=== PATIENT | male | born 1960 | race Caucasian/White ===

== ENCOUNTER 2016-12-10 14:44 | Emergency (ER) | payer MEDICAID, OTHER ==
[~2016-12-10] VITALS: Ht 175.3 cm; Wt 95.3 kg
[2016-12-10 14:52] VITALS: BP 144/99
--- NOTE | 2016-12-10 14:55 | NUR ---
PATIENT PRESENTS TO ED WITH C/O LOW BACK PAIN ON AND OFF, WORSE WHEN BREATHING DEEP AND COUGHING, BEEN GOING ON X 4 DAYS; DENIES N/V/D; SKIN IS PINK/WARM/DRY; AAOX4 WITH EVEN AND STEADY GAIT; LUNGS CLEAR BL; HR EVEN AND REGULAR; PT DENIES ANY FEVER, CP, SOB, OR COUGH AT THIS TIME; PATIENT STATES PAIN OF 8/10 AT THIS TIME; VSS; PATIENT POSITIONED FOR COMFORT; HOB ELEVATED; BEDRAILS UP X2; BED DOWN. ER MD MADE AWARE OF PT STATUS.
--- NOTE | 2016-12-10 15:04 | NUR ---
DR FLORES ASSESS [facility] PT AT BEDSIDE
[2016-12-10] MEDS ORDERED: KETOROLAC 60 MG/2 ML VIAL IM ONE (15:10)
--- NOTE | 2016-12-10 15:36 | NUR ---
[facility] PT TAKEN TO XRAY VIA WHEEL CHAIR BY [place]
[2016-12-10 16:45] VITALS: BP 121/81
--- NOTE | 2016-12-10 16:45 | NUR ---
Patient discharged with v/s stable. Written and verbal after care instructions given and explained. Patient alert, oriented and verbalized understanding of instructions. Ambulatory with steady gait. All questions addressed prior to discharge. ID band removed. Patient advised to follow up with PMD. Rx of MOTRIN, FLEXERIL, TRAMADOL given. Patient educated on indication of medication including possible reaction and side effects. Opportunity to ask questions provided and answered.
== END 2016-12-10 16:45 | disposition home or self-care (01) ==
LOC: MED 14:44
DX: M62.830 Muscle spasm of back (principal); R03.0 Elevated blood-pressure reading, without diagnosis of hypertension; M54.2 Cervicalgia
CPT/HCPCS: 72100; 96372; 99284; J1885

== ENCOUNTER 2017-07-15 09:25 | Emergency (ER) | payer OTHER ==
[~2017-07-15] VITALS: Ht 182.9 cm; Wt 93.6 kg
[2017-07-15 09:28] VITALS: BP 120/76
--- NOTE | 2017-07-15 09:33 | NUR ---
Patient ambulated to bed 3.
--- NOTE | 2017-07-15 09:36 | NUR ---
PATIENT PRESENTS TO ED WITH C/O LEFT INGUINAL HERNIA, PAIN---SEEN 07/02/2017 TAUGHT HOW TO PUSH IT BACK AND APPLY ICE---PT STATES IT HURTS MORE NOW AND REPEATEDLY PROTRUDING HX---INGUINAL HERNIA, RX---NONE . PT STATES; DENIES N/V/D; SKIN IS PINK/WARM/DRY; AAOX4 WITH EVEN AND STEADY GAIT; LUNGS CLEAR BL; HR EVEN AND REGULAR; PT DENIES ANY FEVER, CP, SOB, OR COUGH AT THIS TIME; PATIENT STATES PAIN OF 7/10 AT THIS TIME; VSS; PATIENT POSITIONED FOR COMFORT; HOB ELEVATED; BEDRAILS UP X2; BED DOWN. ER MD MADE AWARE OF PT STATUS.
--- NOTE | 2017-07-15 11:05 | NUR ---
ER MD DR. HIGUERA EVALUATING PT AT BEDSIDE.
--- NOTE | 2017-07-15 11:05 | NUR ---
DR HIGUERA EVALUATING [facility] PT WITH DAUGHTER AT BEDSIDE
[2017-07-15] MEDS ORDERED: KETOROLAC 60 MG/2 ML VIAL IM ONE (11:10)
[2017-07-15 11:30] VITALS: BP 107/85
--- NOTE | 2017-07-15 11:30 | NUR ---
Patient discharged with v/s stable. Written and verbal after care instructions given and explained. Patient alert, oriented and verbalized understanding of instructions. Ambulatory with steady gait. All questions addressed prior to discharge. ID band removed. Patient advised to follow up with PMD. Rx of NORCO, MOTRIN given. Patient educated on indication of medication including possible reaction and side effects. Opportunity to ask questions provided and answered.
== END 2017-07-15 11:30 | disposition home or self-care (01) ==
LOC: MED 09:25
DX: K40.90 Unilateral inguinal hernia, without obstruction or gangrene, not specified as recurrent (principal); F17.200 Nicotine dependence, unspecified, uncomplicated
CPT/HCPCS: 96372; 99283; J1885

== ENCOUNTER 2017-08-04 16:22 | Emergency (ER) | payer OTHER ==
[~2017-08-04] VITALS: Ht 182.9 cm; Wt 93.6 kg
[2017-08-04 16:28] VITALS: BP 132/80
--- NOTE | 2017-08-04 16:37 | NUR ---
Patient ambulated to bed 09.
--- NOTE | 2017-08-04 16:39 | NUR ---
PATIENT PRESENTS TO ED WITH C/O LEFT INGUINAL HERNIA X 1 WK;BURNING TYPE PAIN, DENIES INCONTINENCE;DENIES PAINFUL URINATION;ALSO C/O DRIBBLING IN URINATION;HX OF INGUINAL HERNIA, RX OF NORCO, IBUPROFEN .DENIES N/V/D; SKIN IS PINK/WARM/DRY; AAOX4 WITH EVEN AND STEADY GAIT; LUNGS CLEAR BL; HR EVEN AND REGULAR; PT DENIES ANY FEVER, CP, SOB, OR COUGH AT THIS TIME; PATIENT STATES PAIN OF 8/10 AT THIS TIME;PATIENT POSITIONED FOR COMFORT; HOB ELEVATED; BEDRAILS UP X2; BED DOWN. ER MD MADE AWARE OF PT STATUS.
--- NOTE | 2017-08-04 17:16 | NUR ---
DR HIGUERA AT BEDSIDE.
--- NOTE | 2017-08-04 17:16 | NUR ---
Dr. Mark evaluating patient at bedside.
[2017-08-04] MEDS ORDERED: MORPHINE SULFATE 4 MG/ML SYR IM ONE (17:25)
--- NOTE | 2017-08-04 17:48 | NUR ---
PT SATES PAIN IS GOING AWAY;PAIN SCALE OF 7/10;NO MOANING;FACIAL GRIMMACING NOTED;WILL CONTINUE TO MONITOR PT.
[2017-08-04 17:55] VITALS: BP 123/76
--- NOTE | 2017-08-04 17:55 | NUR ---
Patient discharged with v/s stable. Written and verbal after care instructions given and explained. Patient alert, oriented and verbalized understanding of instructions. Ambulatory with steady gait. All questions addressed prior to discharge. ID band removed. Patient advised to follow up with PMD. Rx of NORCO AND MOTRIN given. Patient educated on indication of medication including possible reaction and side effects. Opportunity to ask questions provided and answered.
== END 2017-08-04 17:55 | disposition home or self-care (01) ==
LOC: MED 16:22
DX: K40.90 Unilateral inguinal hernia, without obstruction or gangrene, not specified as recurrent (principal); F17.210 Nicotine dependence, cigarettes, uncomplicated; Z91.041 Radiographic dye allergy status
CPT/HCPCS: 96372; 99283; J2270

== ENCOUNTER 2017-09-06 07:39 | Day surgery (SDC) | payer OTHER ==
[~2017-09-06] VITALS: Ht 175.3 cm; Wt 90.7 kg
[2017-09-06] MEDS ORDERED: PROPOFOL 200 MG/20 ML VIAL IV ONE (08:41)
[2017-09-06] MEDS ORDERED: ONDANSETRON 4 MG/2 ML VIAL IVP ONE (08:41)
[2017-09-06] MEDS ORDERED: SEVOFLURANE 250 ML BTL INH ONE (08:41)
[2017-09-06] MEDS ORDERED: DEXAMETHASONE 4 MG/ML VIAL IVP ONE (08:41)
[2017-09-06] MEDS ORDERED: BUPIVACAINE-MPF 0.25% 30 ML VIAL INJ ONE (08:49)
[2017-09-06] MEDS ORDERED: fentaNYL 0.05 MG/ML VIAL ONE (08:55)
[2017-09-06] MEDS ORDERED: MORPHINE SULFATE 4 MG/ML SYR ONE ×3 (08:55→10:40)
[2017-09-06] MEDS ORDERED: MIDAZOLAM 2 MG/2 ML VIAL ONE (08:55)
[2017-09-06] MEDS ORDERED: MORPHINE SULFATE 4 MG/ML SYR IVP PRN (09:10)
[2017-09-06] MEDS ORDERED: MORPHINE SULFATE 2 MG/ML SYR IVP PRN ×2 (09:10→10:15)
[2017-09-06] MEDS ORDERED: METOCLOPRAMIDE 10 MG/2 ML INJ VIAL IVP PRN (09:10)
[2017-09-06] MEDS ORDERED: MIDAZOLAM 2 MG/2 ML VIAL IV ONE (09:10)
[2017-09-06] MEDS ORDERED: HYDROcodone/APAP 5/325 MG 1 TAB TAB PO PRN (10:15)
[2017-09-06] MEDS ORDERED: HYDROmorphone 1 MG/ML AMP IVP PRN (10:15)
[2017-09-06] MEDS ORDERED: ACETAMINOPHEN 325 MG TAB PO PRN (10:15)
[2017-09-06] MEDS ORDERED: MORPHINE SULFATE 4 MG/ML SYR IV PRN (10:15)
[2017-09-06] MEDS ORDERED: ONDANSETRON 4 MG/2 ML VIAL IV PRN (10:15)
[2017-09-06] MEDS: MORPHINE SULFATE 4 MG/ML SYR IVP PRN ×2 (10:18→10:34)
[2017-09-06] MEDS ORDERED: HYDROmorphone 1 MG/ML AMP IVP ONE (12:10)
== END 2017-09-06 12:40 | disposition home or self-care (01) ==
LOC: MDS 07:39 → MMU 07:39 → MDS 12:40
PROVIDERS: ATTEND Surgery
DX: K40.90 Unilateral inguinal hernia, without obstruction or gangrene, not specified as recurrent (principal); F17.210 Nicotine dependence, cigarettes, uncomplicated; Z98.890 Other specified postprocedural states; Z88.8 Allergy status to other drugs, medicaments and biological substances; Z79.899 Other long term (current) drug therapy
CPT/HCPCS: 49505; 71010; 93005; J0690; J0694; J1100; J1170; J2250; J2270; J2405; J2704; J3010; J3490; J7060; J7120

== ENCOUNTER 2021-05-04 10:12 | Emergency (ER) | payer OTHER ==
[~2021-05-04] VITALS: Ht 175.3 cm; Wt 104.3 kg
[2021-05-04 10:26] VITALS: BP 132/92
[2021-05-04] MEDS ORDERED: HYDROcodone/APAP 5/325 MG 1 TAB TAB PO ONE (10:30)
[2021-05-04] MEDS ORDERED: IBUPROFEN 400 MG TAB PO ONE (10:30)
--- NOTE | 2021-05-04 10:30 | NUR ---
Patient ambulated to bed 03 with steady/even gait; accompanied by family.
--- NOTE | 2021-05-04 10:37 | NUR ---
Dr. Stratton is evaluating patient at bedside.
--- NOTE | 2021-05-04 10:40 | NUR ---
Patient switched from bed 03 to 02.
--- NOTE | 2021-05-04 10:40 | NUR ---
RAD at bedside.
--- NOTE | 2021-05-04 10:45 | NUR ---
60 y/o M BIB daughter with c/c Leg pain s/p tripping at home. Patient A&Ox4, ambulatory with slow steady gait, states pain to R leg and R ankle after stepping on a hole. Patient reports 10/10, aching/constant, radiating to R knee x 2 days. Patient unable to wiggle toes; +pedal pulses, limited ROM of R ankle, reports pins and needles pain upon ambulation/weight bearing. Patient denies any other injury, trauma, head/neck/back pain, hip pain, LE pain, abdominal pain, numbness/tingling, fever, chills, dizziness, cold-like symptoms, blurry vision. Denies any medications prior to arrival. bus monitor in place. Bed locked in lowest position, side rails x 1, call light in reach. PMH/Sx/Meds: Denies Allergies: IV contrast
[2021-05-04] MEDS ORDERED: NAPR-1704 PO (11:28)
[2021-05-04 11:40] VITALS: BP 132/92
--- NOTE | 2021-05-04 11:40 | NUR ---
Patient discharged with v/s stable. Written and verbal after care instructions given and explained. Patient alert, oriented and verbalized understanding of instructions. Ambulatory with CRUTCHES to car. All questions addressed prior to discharge. ID band removed. Patient advised to follow up with PMD. Rx of NAPROXEN given. Patient educated on indication of medication including possible reaction and side effects. Opportunity to ask questions provided and answered.
== END 2021-05-04 11:40 | disposition home or self-care (01) ==
LOC: MED 10:12
DX: S93.401A Sprain of unspecified ligament of right ankle, initial encounter (principal); F17.290 Nicotine dependence, other tobacco product, uncomplicated; Z98.890 Other specified postprocedural states; Z79.899 Other long term (current) drug therapy; W22.8XXA Striking against or struck by other objects, initial encounter; Y93.89 Activity, other specified; Y92.89 Other specified places as the place of occurrence of the external cause; Y99.8 Other external cause status
CPT/HCPCS: 29515; 73590; 73610; 99284